=== PATIENT | male | born 1955 ===

== ENCOUNTER 2020-08-16 06:33 | Day surgery (SDC) | payer OTHER ==
[~2020-08-16 06:33] MED LIST: CATAFLAN PO; CLONAZEPAM0.5 MG PO; LEXAP PO; OMEPRAZOLE MAGN20 MG PO
== END 2020-08-16 15:02 | disposition home or self-care (01) ==
LOC: CIR.AMB 06:33
PROVIDERS: ATTEND Orthopaedic Surgery Hand Surgery
DX: G56.01 Carpal tunnel syndrome, right upper limb (principal); M19.131 Post-traumatic osteoarthritis, right wrist; Z20.822 Contact with and (suspected) exposure to COVID-19